=== PATIENT | male | born 1955 | race Caucasian/White ===

== ENCOUNTER 2020-05-11 01:25 | Emergency (ER) | payer MEDICARE ==
[~2020-05-11] VITALS: Ht 180.3 cm; Wt 106.8 kg
[2020-05-11] MEDS ORDERED: IV RINGERS,LACTATED 1000ML 1,000 ML IV SCH (01:45)
[2020-05-11] MEDS ORDERED: ONDANSETRON PF 4 MG/2 ML VIAL. IVP ONE (01:45)
[2020-05-11 01:56] LABS: BASO # 0.1 x10^3/uL (0.0-0.2); BASO % 1 % (0-3); EOS # 0.2 x10^3/uL (0.0-0.7); EOS % 2 % (0-3); LYMPH # 2.8 x10^3/uL (1.0-4.8); LYMPH % 32 % (24-48); MEAN CORPUSCULAR HEMOGLOBIN 29 pg (25-35); MEAN CORPUSCULAR HGB CONC 34 g/dL (31-37); MEAN CORPUSCULAR VOLUME 86 fL (79-100); MONO # 0.5 x10^3/uL (0.0-1.1); MONO % 6 % (0-9); NEUT # 5.1 x10^3/uL (1.8-7.7); NEUT % 59 % (31-73); PLATELET COUNT 179 x10^3/uL (140-400); RED BLOOD COUNT 5.49 x10^6/uL (4.30-5.70); RED CELL DISTRIBUTION WIDTH 13.2 % (11.5-14.5); WHITE BLOOD COUNT 8.6 x10^3/uL (4.0-11.0)
--- NOTE | 2020-05-11 01:57 | PHYS DOC ---
General Adult EDM: Chief Complaint: ALCOHOL INTOXICATION HPI: HPI: 64 yo M PMH cerebral palsy (left sided weakness), CAD on plavix (2019), seizure disorder, HTN, and HLD, presents to the ed with c/o "I had too much to drink and I fell," denies LOC, associated nausea , nbnb vomiting and bilateral epistaxis. Reports he stood up and lost his balance. Incontinent of urine cause 'I couldn't hold it in." Tetanus updated in 2011. Last seizure was 3 years ago. C/o pain to his left upper forehead. Is thanking staff for helping him. Review of Systems: Review of Systems: Constitutional: Denies fever or chills. [] Eyes: Denies change in visual acuity. [] HENT: Denies nasal congestion or sore throat. [] Respiratory: Denies cough or shortness of breath. [] Cardiovascular: Denies chest pain or edema. [] GI: Denies abdominal pain, nausea, bloody stools or diarrhea. [] : Denies dysuria or hematuria Musculoskeletal: Denies midline back pain or joint pain or saddle anesthesia Integument: Denies rash or crepitus Neurologic: Denies headache, neck pain, focal weakness or sensory changes. [] Endocrine: Denies polyuria or polydipsia. [] Lymphatic: Denies swollen glands. [] Psychiatric: Denies depression or anxiety. [] Heart Score: Risk Factors: Risk Factors: DM, Current or recent (<one month) smoker, HTN, HLP, family history of CAD, obesity. Risk Scores: Score 0 - 3: 2.5% MACE over next 6 weeks - Discharge Home Score 4 - 6: 20.3% MACE over next 6 weeks - Admit for Clinical Observation Score 7 - 10: 72.7% MACE over next 6 weeks - Early Invasive Strategies Current Medications: Current Medications Medications (Trade) Dose Ordered Sig/Ryland Start Time Stop Time Status Last Admin Dose Admin Ringer's Solution 1,000 ml @ 1,000 mls/hr Q1H 05/11/20 01:45 05/11/20 02:44 UNV Physical Exam: PE: Constitutional: Well developed, well nourished, no acute distress, non-toxic appearance. HENT: left forehead hematoma (6x6cm), bilateral epistaxis-no active bleed or septal hematoma Eyes: PERRLA, EOMI, conjunctiva normal, no discharge. Neck: Normal range of motion, supple, Cardiovascular: S1/2 present, regular rhythm Lungs & Thorax: Speaking in full sentences, bilateral equal chest rise, no tachypnea or increased work of breathing Abdomen: soft, no tenderness, obese, no guarding or rigidity, no hip tenderness Skin: Warm, dry, no erythema, no rash. [] Back: No tenderness, no CVA tenderness. [] Extremities: No tenderness, no cyanosis, no edema Neurologic: Alert and oriented X 3, normal motor function, normal sensory function, no focal deficits noted, moving all 4 extremities, ataxic movements - cannot ambulate, needs assistance moving from ems stretcher to ed bed Psychologic: Affect normal, judgement normal, mood normal. [] EKG: EKG: atrial flutter vs sinus bradycardia 54 bpm, NAD, normal intervals, no TWIs, no ST elevations or ST depressions Radiology/Procedures: Radiology/Procedures: IMAGING REPORT Signed PATIENT: ENE BARRAGAN ACCOUNT: [id number] : 1955 LOCATION: ER AGE: 64 SEX: M EXAM STATUS: REG ER ORD. PHYSICIAN: LIZY GARCIA DO REASON: fall PROCEDURE: CT HEAD AND CERVICAL SPINE WO CT HEAD AND C-SPINE WO, CT MAXILLOFACIAL WITHOUT CONTRAST dated 05/11/2020 1:53 AM. Comparison: None. Clinical Indication: Reason: fall / Spl. Instructions: / History: HEAD AND NECK PAIN Technical factors: Contiguous 5 mm axial images of the head were obtained from the skullbase to the vertex. No contrast was administered. In addition, 3 mm axial images of the cervical spine and maxillofacial bones were acquired with thin cut coronal and sagittal reconstructions. One or more of the following individualized dose reduction techniques were utilized for this examination: 1. Automated exposure control 2. Adjustment of the mA and/or kV according to patient size 3. Use of iterative reconstruction technique Findings head: Ventricles and sulci are mildly prominent for age. No midline shift or mass effect. There is a sheldon matter lined CSF left extends from the frontal horn of the right lateral ventricle to the outer cortex of the lateral right frontal lobe extending to the temporal lobe. No corresponding defect on the left. The brain parenchyma is of normal attenuation hemorrhage or extra-axial collection. 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 No apparent calvarial abnormality. IMPRESSION HEAD: 1. No evidence of acute intracranial hemorrhage or mass. 2. 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 Findings maxillofacial: There is a large scalp hematoma over the left frontal bone extending to the supraorbital region on the left. There is also soft tissue swelling over the nasal region with fractures of the bilateral nasal bone, not significantly displaced. The orbital blanco and maxillary blanco are intact. Zygomatic arches and mandible are intact. Minimal mucosal thickening of the bilateral ethmoid air cells and left maxillary sinus. The paranasal sinuses are otherwise clear. Mastoid air cells are clear. No additional soft tissue abnormality. IMPRESSION MAXILLOFACIAL: 1. Large scalp hematoma the supraorbital region on the left with no evidence of displaced facial fracture. 2. There is also soft tissue swelling over the nose with nondisplaced fractures of the bilateral nasal bone. 3. Mild sinus disease. Findings cervical spine: Images were acquired from the skull base to T2. There is straightening of the normal cervical lordosis, otherwise sagittal alignment is anatomic. Vertebral body heights are maintained. No prevertebral soft tissue swelling. Posterior elements are intact. No fractures are identified. Mild endplate hypertrophic changes throughout. Multilevel uncovertebral spurring and facet arthropathy. There is mild to moderate bilateral foraminal stenosis at the C3-C4, C4-C5 levels. No apparent focal disc herniation or central canal compromise. Visualized soft tissue structures unremarkable. Limited images of lung apices are clear. IMPRESSION CERVICAL SPINE: 1. No evidence of fracture or malalignment. 2. Mild multilevel spondylosis. Electronically signed by: Jose Lyn MD (05/11/2020 2:28 AM) [facility] [place] SIGNED BY: JOSE LYN MD DATE: 05/11/20 [id number] 0 IMAGING REPORT Signed PATIENT: ENE BARRAGAN ACCOUNT: [id number] : 1955 LOCATION: ER AGE: 64 SEX: M EXAM STATUS: REG ER ORD. PHYSICIAN: LIZY GARCIA DO REASON: fall on thinners PROCEDURE: CHEST AP ONLY Single view chest dated 05/11/2020: No comparison available. Clinical Indication: Pain after fall. Findings: Single upright portable exam of the chest was performed. Heart size and mediastinal contours are within normal limits. There is a dual lead left subclavian pacer in place. The lungs are clear without evidence of focal consolidation. Vascular interstitium is within normal limits. No pleural effusion or pneumothorax. Impression:: No acute radiographic abnormality. Electronically signed by: Jose Lyn MD (05/11/2020 2:32 AM) [facility] DICTATED and SIGNED BY: JOSE LYN MD DATE: 05/11/20 [id number] 0 IMAGING REPORT Signed PATIENT: ENE BARRAGAN ACCOUNT: [id number] : 1955 LOCATION: ER AGE: 64 SEX: M EXAM STATUS: REG ER ORD. PHYSICIAN: LIZY GARCIA DO REASON: fall on thinners PROCEDURE: PELVIS Single view pelvis dated 05/11/2020. No comparison available. CLINICAL INDICATION: Pain after injury. FINDINGS: Single AP view pelvis shows normal bony alignment. No displaced fracture. No acute osseous or articular abnormality. Mild degenerative change of the bilateral hip joint. Spondylotic changes of the lower lumbar spine. IMPRESSION: 1. No evidence of displaced fracture. If there is persistent clinical concern for occult fracture or insufficiency fracture, MRI could better evaluate. 2. Mild degenerative changes as described. Electronically signed by: Jose Lyn MD (05/11/2020 2:31 AM) [facility] DICTATED and SIGNED BY: JOSE LYN MD DATE: 05/11/[id number] 0 Course & Med Decision Making: Course & Med Decision Making Pertinent Labs and Imaging studies reviewed. (See chart for details) Concern for traumatic fall 2/2 alcohol intoxication. Patient now awake alert with steady gait decision-making capacity. Daughter present in ED to take pt home. will discharge home with strict ED return precautions were given for neurologic deficits, severe headache, nausea or vomiting or blurry vision. Encouraged urgent outpatient follow-up with PMD and neurology prn. Life- threatening processes were considered but are low suspicion at this time, given history, physical exam and ED workup. Pt was educated on all prescription medications and adverse effects. All patient's questions were answered and pt was stable at time of discharge. Life/limb-threatening differential includes but is not limited to, intracranial hemorrhage, diffuse axonal injury, spinal cord syndrome, unstable cervical fracture or SCIWORA, fractures or joint dislocations, neurovascular injuries, organ injury or laceration, pneumothorax, pneumoperitoneum, pericardial tamponade, unstable pelvic fracture, compartment syndrome, flail chest or respiratory distress, burn injury or asphyxiation I spoken with the patient and her caregivers. I explained the patient's condition, diagnoses and treatment plan based on the information available to me at this time. I have answered the patient and her caregiver's questions and addressed any concerns. The patient and her caregivers have a good unde rstanding of patient's diagnosis, condition and treatment plan as can be expected at this point. Vital signs have been stable. Patient's condition is stable and appropriate for discharge from the emergency department. Patient will pursue further outpatient evaluation with primary care physician or other designated or consulting physician as outlined in the discharge instructions. The patient and/or caregivers are agreeable to this plan of care and follow-up instructions have been explained in detail. The patient and/or caregivers have received these instructions in written form and have expressed an understanding of the discharge instructions. The patient and/or caregivers are aware that any significant change of condition or worsening of symptoms nahid uld prompt immediate return to this or the closest emergency department or call to 911. Marco Disclaimer: Marco Disclaimer: This electronic medical record was generated, in whole or in part, using a voice recognition dictation system. Departure Departure Impression: Primary Impression: Traumatic hematoma of forehead Additional Impressions: Alcohol intoxication Nasal bones, closed fracture Disposition: 01 DC HOME SELF CARE/HOMELESS Condition: STABLE Referrals: NO PCP (PCP) FOLLOW UP WITH FAMILY MEDICINE: Family Medicine Address: [address] [facility], [facility] [address] [place] [address] Patient Instructions: Alcohol Intoxication, Head Injury, Adult, Nasal Fracture, Scalp Hematoma Additional Instructions: FOLLOW UP WITH NEUROLOGY: [facility] Address: [address] [facility] [place] [address] EMERGENCY DEPARTMENT GENERAL DISCHARGE INSTRUCTIONS Thank you for coming to [facility] Emergency Department (ED) today and trusting us with you care. We trust that you had a positive experience in our Emergency Department. If you wish to speak to the department management, you may call the Director at [phone]. YOUR FOLLOW UP INSTRUCTIONS ARE FOLLOWS: 1. Do you have a private Doctor? If you do not have a private doctor, please ask for a resource list of physicians or clinics that may be able to assist you with follow up care. 2. The Emergency Physicain has interpreted your x-rays. The X-Ray specialist will also review them. If there is a change in the findings, you will be notified in 48 hours when at all possible. 3. A lab test or culture has been done, your results will be reviewed and you will be notified if you need a change in treatment. ADDITIONAL INSTRUCTIONS AND INFORMATION: 1. Your care today has been supervised by a physician who is specially trained in emergency care. Many problems require more than one evaluation for a complete diagnosis and treatment. We recommend that you schedule your follow up appointment as recommended to ensure complete treatment of you illness or injury. If you are unable to obtain follow up care and continue to have a problem, or if your condition worsens, we recommend that you return to the ED. 2. We are not able to safely determine your condition over the phone nor are we able to give sound medical advice over the phone. For these safety reasons, if you call for medical advice we will ask you to come to the ED for further evaluation. 3. If you have any questions regarding these discharge instructions please call the ED at [phone]. SAFETY INFORMATION: In the interest of safety, wellness, and injury prevention; we encourage you to wear your sealbelt, if you smoke; quite smoking, and we encourage family to use a protective helmet for bicycling and other sporting events that present an increased risk for head injury. IF YOUR SYMPTOMS WORSEN OR NEW SYMPTOMS DEVELOP, OR YOU HAVE CONCERNS ABOUT YOUR CONDITION; OR IF YOUR CONDITION WORSENS WHILE YOU ARE WAITING FOR YOUR FOLLOW UP APPOINTMENT; EITHER CONTACT YOUR PRIMARY CARE DOCTOR, THE PHYSICIAN WHOSE NAME AND NUMBER YOU WERE GIVEN, OR RETURN TO THE ED IMMEDIATELY. LIZY SETH DO May 11, 2020 01:57
[2020-05-11 02:16] LABS: CALCIUM 8.5 mg/dL (8.5-10.1); GFR 75.7; POTASSIUM 3.6 mmol/L (3.5-5.1); PROTHROMBIN TIME PATIENT 13.4 SEC (11.7-14.0)
[2020-05-11 02:22] LABS: ALBUMIN 3.8 g/dL (3.4-5.0); ALBUMIN/GLOBULIN RATIO 1.2 (1.0-1.7); TOTAL BILIRUBIN 0.3 mg/dL (0.2-1.0); TOTAL PROTEIN 7.1 g/dL (6.4-8.2)
--- NOTE | 2020-05-11 02:30 | RAD ---
CT HEAD AND C-SPINE WO, CT MAXILLOFACIAL WITHOUT CONTRAST dated 05/11/2020 1:53 AM. Comparison: None. Clinical Indication: Reason: fall / Spl. Instructions: / History: HEAD AND NECK PAIN Technical factors: Contiguous 5 mm axial images of the head were obtained from the skullbase to the v ertex. No contrast was administered. In addition, 3 mm axial images of the cervical spine and maxillo facial bones were acquired with thin cut coronal and sagittal reconstructions. One or more of the following individualized dose reduction techniques were utilized for this examinat ion: 1. Automated exposure control 2. Adjustment of the mA and/or kV according to patient size 3. Use of iterative reconstruction technique Findings head: Ventricles and sulci are mildly prominent for age. No midline shift or mass effect. There is a sheldon m atter lined CSF left extends from the frontal horn of the right lateral ventricle to the outer cortex of the lateral right frontal lobe extending to the temporal lobe. No corresponding defect on the lef t. The brain parenchyma is of normal attenuation hemorrhage or extra-axial collection. 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 No apparent calvarial abnormality. IMPRESSION HEAD: 1. No evidence of acute intracranial hemorrhage or mass. 2. 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 Findings maxillofacial: There is a large scalp hematoma over the left frontal bone extending to the supraorbital region on th e left. There is also soft tissue swelling over the nasal region with fractures of the bilateral nasa l bone, not significantly displaced. The orbital blanco and maxillary blanco are intact. Zygomatic arch es and mandible are intact. Minimal mucosal thickening of the bilateral ethmoid air cells and left ma xillary sinus. The paranasal sinuses are otherwise clear. Mastoid air cells are clear. No additional soft tissue abnormality. IMPRESSION MAXILLOFACIAL: 1. Large scalp hematoma the supraorbital region on the left with no evidence of displaced facial frac ture. 2. There is also soft tissue swelling over the nose with nondisplaced fractures of the bilateral nasa l bone. 3. Mild sinus disease. Findings cervical spine: Images were acquired from the skull base to T2. There is straightening of the normal cervical lordosi s, otherwise sagittal alignment is anatomic. Vertebral body heights are maintained. No prevertebral s oft tissue swelling. Posterior elements are intact. No fractures are identified. Mild endplate hypertrophic changes throughout. Multilevel uncovertebral spurring and facet arthropath y. There is mild to moderate bilateral foraminal stenosis at the C3-C4, C4-C5 levels. No apparent foc al disc herniation or central canal compromise. Visualized soft tissue structures unremarkable. Limited images of lung apices are clear. IMPRESSION CERVICAL SPINE: 1. No evidence of fracture or malalignment. 2. Mild multilevel spondylosis. Electronically signed by: Jose Lyn MD (05/11/2020 2:28 AM) [facility]
--- NOTE | 2020-05-11 02:33 | RAD ---
Single view pelvis dated 05/11/2020. No comparison available. CLINICAL INDICATION: Pain after injury. FINDINGS: Single AP view pelvis shows normal bony alignment. No displaced fracture. No acute osseous or articul ar abnormality. Mild degenerative change of the bilateral hip joint. Spondylotic changes of the lower lumbar spine. IMPRESSION: 1. No evidence of displaced fracture. If there is persistent clinical concern for occult fracture or insufficiency fracture, MRI could better evaluate. 2. Mild degenerative changes as described. Electronically signed by: Jose Lyn MD (05/11/2020 2:31 AM) [facility]
--- NOTE | 2020-05-11 02:34 | RAD ---
Single view chest dated 05/11/2020: No comparison available. Clinical Indication: Pain after fall. Findings: Single upright portable exam of the chest was performed. Heart size and mediastinal contours are with in normal limits. There is a dual lead left subclavian pacer in place. The lungs are clear without ev idence of focal consolidation. Vascular interstitium is within normal limits. No pleural effusion or pneumothorax. Impression:: No acute radiographic abnormality. Electronically signed by: Jose Lyn MD (05/11/2020 2:32 AM) [facility]
--- NOTE | 2020-05-11 02:57 | EKG ---
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
[2020-05-11 05:20] VITALS: BP 160/77
== END 2020-05-11 05:40 | disposition home or self-care (01) ==
LOC: ER 01:25
DX: S02.2XXA Fracture of nasal bones, initial encounter for closed fracture (principal); S00.83XA Contusion of other part of head, initial encounter; S00.03XA Contusion of scalp, initial encounter; F10.129 Alcohol abuse with intoxication, unspecified; Y90.6 Blood alcohol level of 120-199 mg/100 ml; R11.2 Nausea with vomiting, unspecified; R04.0 Epistaxis; G40.909 Epilepsy, unspecified, not intractable, without status epilepticus; I10 Essential (primary) hypertension; I25.10 Atherosclerotic heart disease of native coronary artery without angina pectoris; M47.812 Spondylosis without myelopathy or radiculopathy, cervical region; W18.39XA Other fall on same level, initial encounter; Y93.89 Activity, other specified; Y92.89 Other specified places as the place of occurrence of the external cause; Y99.8 Other external cause status
CPT/HCPCS: 36415; 70450; 70486; 71045; 72125; 72170; 80053; 83690; 84484; 85025; 85610; 85730; 93005; 96361; 96374; 99285; G0480; J2405; J7120